=== PATIENT | male | born 1995 | race American Indian/Alaskan Native ===

== ENCOUNTER 2019-03-26 15:35 | Emergency (ER) | payer SELFPAY ==
[2019-03-26 16:30] VITALS: BP 126/80
--- NOTE | 2019-03-26 16:32 | Emergency Department Report ---
ED ENT HPI - General Chief complaint: Dental/Oral Stated complaint: TOOTHACHE Time Seen by Provider: 03/26/19 16:28 Source: patient Mode of arrival: Ambulatory Limitations: No Limitations - History of Present Illness Initial comments: pt is a 23 yo male who presents to the ED with right lower dental pain that began three months ago. states he has had edema that began two days ago to the right lower jaw. states he last saw a dentist a year or two years ago. states his fillings fell out three months ago. no fever. no PMHx. no allergies to meds. +marijuana, no tobacco use, no ETOH use. - Related Data Previous Rx's Medication Instructions Recorded Last Taken Type Acetaminophen/Codeine [Tylenol 1 tab PO Q6H PRN #10 tab 03/26/19 Unknown Rx /Codeine # 3 tab] Ibuprofen [Motrin 800 MG tab] 800 mg PO Q8HR PRN #14 tablet 03/26/19 Unknown Rx Penicillin Vk [Veetids TAB] 500 mg PO QID 7 Days #56 tablet 03/26/19 Unknown Rx Allergies Allergy/AdvReac Type Severity Reaction Status Date / Time No Known Allergies Allergy Verified 03/26/19 16:30 ED Dental HPI - General Chief complaint: Dental/Oral Stated complaint: TOOTHACHE Time Seen by Provider: 03/26/19 16:28 Source: patient Mode of arrival: Ambulatory Limitations: No Limitations - Related Data Previous Rx's Medication Instructions Recorded Last Taken Type Acetaminophen/Codeine [Tylenol 1 tab PO Q6H PRN #10 tab 03/26/19 Unknown Rx /Codeine # 3 tab] Ibuprofen [Motrin 800 MG tab] 800 mg PO Q8HR PRN #14 tablet 03/26/19 Unknown Rx Penicillin Vk [Veetids TAB] 500 mg PO QID 7 Days #56 tablet 03/26/19 Unknown Rx Allergies Allergy/AdvReac Type Severity Reaction Status Date / Time No Known Allergies Allergy Verified 03/26/19 16:30 ED Review of Systems ROS: Stated complaint: TOOTHACHE Other details as noted in HPI Comment: All other systems reviewed and negative ED Past Medical Hx - Past Medical History Previous Medical History?: No - Surgical History Past Surgical History?: No - Medications Home Medications: Home Medications Medication Instructions Recorded Confirmed Last Taken Type Acetaminophen/Codeine [Tylenol 1 tab PO Q6H PRN #10 tab 03/26/19 Unknown Rx /Codeine # 3 tab] Ibuprofen [Motrin 800 MG tab] 800 mg PO Q8HR PRN #14 tablet 03/26/19 Unknown Rx Penicillin Vk [Veetids TAB] 500 mg PO QID 7 Days #56 tablet 03/26/19 Unknown Rx ED Physical Exam - General Limitations: No Limitations General appearance: alert, in no apparent distress - Head Head exam: Present: atraumatic, normocephalic - Eye Eye exam: Present: normal appearance, PERRL - ENT ENT exam: Present: mucous membranes moist, other (partially cracked tooth on the right lower side, dental caries throughout, area of edema to the right, lower inner cheek, uvula is midline, no uvular edema ) - Neurological Exam Neurological exam: Present: alert, oriented X3 - Psychiatric Psychiatric exam: Present: normal affect, normal mood - Skin Skin exam: Present: warm, dry, intact ED Course Vital Signs 03/26/19 16:28 Temperature 99.3 F Pulse Rate 74 Respiratory 18 Rate Blood Pressure 126/80 [Right] O2 Sat by Pulse 100 Oximetry ED Medical Decision Making - Medical Decision Making pt is a 23 yo male who presents to the ED with right lower dental pain that began three months ago. states he has had edema that began two days ago to the right lower jaw. states he last saw a dentist a year or two years ago. states his fillings fell out three months ago. no fever. no PMHx. no allergies to meds. +marijuana, no tobacco use, no ETOH use. VSS. on exam: partially cracked tooth on the right lower side, dental caries throughout, area of edema to the right, lower inner cheek, uvula is midline, no uvular edema. appears to have a dental abscess. pt is tolerating secretions and PO intake. pt given prescriptions for penicillin vk, ibuprofen, tylenol #3. advised to please take medication as prescribed. do not drive or operate heavy machinery while taking pain medicine. it is very important you follow up with a dentist in the next 2-3 days. you have been provided a list of community resources for dental clinics. return to the emergency room for any new or worsening symptoms. Critical care attestation.: If time is entered above; I have spent that time in minutes in the direct care of this critically ill patient, excluding procedure time. ED Disposition Clinical Impression: Dental abscess, Dental caries, Cracked tooth Disposition: [id number] TO HOME OR SELFCARE Is pt being admited?: No Does the pt Need Aspirin: No Condition: Stable Instructions: Dental Abscess (ED), Dental Caries (ED) Additional Instructions: please take medication as prescribed. do not drive or operate heavy machinery while taking pain medicine. it is very important you follow up with a dentist in the next 2-3 days. you have been provided a list of community resources for dental clinics. return to the emergency room for any new or worsening symptoms. Prescriptions: Ibuprofen [Motrin 800 MG tab] 800 mg PO Q8HR PRN #14 tablet PRN Reason: Pain, Moderate (4-6) Acetaminophen/Codeine [Tylenol /Codeine # 3 tab] 1 tab PO Q6H PRN #10 tab PRN Reason: Pain , Severe (7-10) Penicillin Vk [Veetids TAB] 500 mg PO QID 7 Days #56 tablet Referrals: [facility] [Outside] - 2-3 Days [facility] [Outside] - 2-3 Days [facility] [Outside] - 2-3 Days Time of Disposition: 16:33 Print Language: MOROCCAN
== END 2019-03-26 16:58 | disposition home or self-care (01) ==
LOC: ED 15:35
DX: K04.7 Periapical abscess without sinus (principal); Z79.1 Long term (current) use of non-steroidal anti-inflammatories (NSAID)
CPT/HCPCS: 99281

== ENCOUNTER 2019-05-22 10:57 | Emergency (ER) | payer SELFPAY ==
[2019-05-22 11:12] VITALS: BP 115/72
--- NOTE | 2019-05-22 11:26 | Emergency Department Report ---
ED ENT HPI - General Chief complaint: Dental/Oral Stated complaint: TOOTH PAIN/SWOLLEN Time Seen by Provider: 05/22/19 11:21 Source: patient Mode of arrival: Ambulatory Limitations: No Limitations - History of Present Illness Initial comments: 23 y/o male comes in for right lower tooth pain times 1 week. Patient has a history of tooth being broken. Has some swelling reported. No medication. No dentist follow up. Has no fever. MD complaint: tooth pain Onset/Timin -: week(s) Location: tooth # (28) Severity: severe Severity scale (0 -10): 8 Quality: aching Consistency: constant Improves with: none Worsens with: eating Associated Symptoms: toothache - Related Data Previous Rx's Medication Instructions Recorded Last Taken Type Acetaminophen/Codeine [Tylenol 1 tab PO Q6H PRN #10 tab 03/26/19 Unknown Rx /Codeine # 3 tab] Ibuprofen [Motrin 800 MG tab] 800 mg PO Q8HR PRN #14 tablet 03/26/19 Unknown Rx Penicillin Vk [Veetids TAB] 500 mg PO QID 7 Days #56 tablet 03/26/19 Unknown Rx Clindamycin [Clindamycin CAP] 300 mg PO Q8H #30 cap 05/22/19 Unknown Rx Ibuprofen [Motrin 600 MG tab] 600 mg PO Q8H PRN #30 tablet 05/22/19 Unknown Rx Allergies Allergy/AdvReac Type Severity Reaction Status Date / Time No Known Allergies Allergy Verified 05/22/19 11:00 ED Dental HPI - General Chief complaint: Dental/Oral Stated complaint: TOOTH PAIN/SWOLLEN Time Seen by Provider: 05/22/19 11:21 Source: patient Mode of arrival: Ambulatory Limitations: No Limitations - Related Data Previous Rx's Medication Instructions Recorded Last Taken Type Acetaminophen/Codeine [Tylenol 1 tab PO Q6H PRN #10 tab 03/26/19 Unknown Rx /Codeine # 3 tab] Ibuprofen [Motrin 800 MG tab] 800 mg PO Q8HR PRN #14 tablet 03/26/19 Unknown Rx Penicillin Vk [Veetids TAB] 500 mg PO QID 7 Days #56 tablet 03/26/19 Unknown Rx Clindamycin [Clindamycin CAP] 300 mg PO Q8H #30 cap 05/22/19 Unknown Rx Ibuprofen [Motrin 600 MG tab] 600 mg PO Q8H PRN #30 tablet 05/22/19 Unknown Rx Allergies Allergy/AdvReac Type Severity Reaction Status Date / Time No Known Allergies Allergy Verified 05/22/19 11:00 ED Review of Systems ROS: Stated complaint: TOOTH PAIN/SWOLLEN Other details as noted in HPI Comment: All other systems reviewed and negative Constitutional: denies: chills, fever Eyes: denies: eye pain, eye discharge, vision change ENT: dental pain. denies: ear pain, throat pain Respiratory: denies: cough, shortness of breath, wheezing ED Past Medical Hx - Past Medical History Previous Medical History?: No - Surgical History Past Surgical History?: No - Social History Smoking Status: Never Smoker Substance Use Type: None - Medications Home Medications: Home Medications Medication Instructions Recorded Confirmed Last Taken Type Acetaminophen/Codeine [Tylenol 1 tab PO Q6H PRN #10 tab 03/26/19 Unknown Rx /Codeine # 3 tab] Ibuprofen [Motrin 800 MG tab] 800 mg PO Q8HR PRN #14 tablet 03/26/19 Unknown Rx Penicillin Vk [Veetids TAB] 500 mg PO QID 7 Days #56 tablet 03/26/19 Unknown Rx Clindamycin [Clindamycin CAP] 300 mg PO Q8H #30 cap 05/22/19 Unknown Rx Ibuprofen [Motrin 600 MG tab] 600 mg PO Q8H PRN #30 tablet 05/22/19 Unknown Rx ED Physical Exam - General Limitations: No Limitations General appearance: alert, in no apparent distress - Head Head exam: Present: atraumatic, normocephalic - Eye Eye exam: Present: normal appearance - ENT ENT exam: Present: mucous membranes moist - Expanded ENT Exam Expanded Teeth exam: Present: fractured tooth # (28), other (exposed pulp. ) - Neck Neck exam: Present: normal inspection - Respiratory Respiratory exam: Present: normal lung sounds bilaterally. Absent: respiratory distress - Neurological Exam Neurological exam: Present: alert, oriented X3 - Psychiatric Psychiatric exam: Present: normal affect, normal mood - Skin Skin exam: Present: warm, dry, intact, normal color. Absent: rash ED Course Vital Signs 05/22/19 11:09 Temperature 98.5 F Pulse Rate 89 Respiratory 18 Rate Blood Pressure 115/72 Blood Pressure 115/72 [Right] O2 Sat by Pulse 110 H Oximetry ED Medical Decision Making - Medical Decision Making 23 y/o male comes in for right lower tooth pain times 1 week. Patient has a history of tooth being broken. Has some swelling reported. No medication. No dentist follow up. Has no fever. Will place on clindamycin. and ibuprofen Critical care attestation.: If time is entered above; I have spent that time in minutes in the direct care of this critically ill patient, excluding procedure time. ED Disposition Clinical Impression: Tooth abscess Disposition: TO HOME OR SELFCARE Is pt being admited?: No Does the pt Need Aspirin: No Condition: Stable Instructions: Dental Caries (ED), Toothache (ED) Additional Instructions: Complete antibiotics and take pain medications as need. Follow up with a dentist as soon as possible. Prescriptions: Clindamycin [Clindamycin CAP] 300 mg PO Q8H #30 cap Ibuprofen [Motrin 600 MG tab] 600 mg PO Q8H PRN #30 tablet PRN Reason: Pain Referrals: MANNY MALHOTRA MD [Primary Care Provider] - 3-5 Days [facility] [Outside] - 3-5 Days [facility] [Outside] - 3-5 Days Forms: Work/School Release Form(ED)
== END 2019-05-22 11:45 | disposition home or self-care (01) ==
LOC: ED 10:57
DX: K04.7 Periapical abscess without sinus (principal)
CPT/HCPCS: 99282